=== PATIENT | male | born 1965 | race Hispanic/Latino ===

== ENCOUNTER 2025-01-21 18:05 | Emergency (ER) | payer BC ==
[~2025-01-21] VITALS: Ht 180.3 cm; Wt 83.7 kg
[2025-01-21 18:06] VITALS: PULSE 89; RESP 16; TEMP 98.4; O2SAT 97
[2025-01-21] MEDS: LIDOCAINE VISC 2% SOLN 15 ML UDC PO ONE (18:44)
[2025-01-21] MEDS: MAGNESIUM/ALUMINUM/SIMETHICONE 30 ML UDC PO ONE (18:44)
[2025-01-21] MEDS: BELLADONNA ALK/PHENOBARBITAL 5 ML UDC PO ONE (18:45)
[2025-01-21] MEDS ORDERED: IOPAMIDOL 370 MG/ML 100 ML INFUS..BTL INJ ONE (20:00)
== END 2025-01-21 19:02 | disposition home or self-care (01) ==
LOC: FSED 18:07
DX: R10.13 Epigastric pain (principal); F41.9 Anxiety disorder, unspecified; Z87.19 Personal history of other diseases of the digestive system
CPT/HCPCS: 74177; 80053; 85025; 99284; Q9967